=== PATIENT | male | born 1940 | race Caucasian/White ===

== ENCOUNTER 2017-12-14 13:10 | Emergency (ER) | payer OTHER ==
[2017-12-14 17:01] LABS: ADD MAN DIFF? NO
[2017-12-14 17:03] LABS: WHITE BLOOD COUNT 8.4 10^3/ul (4.8-10.8)
[2017-12-14 17:03] LABS: BASOPHIL # 0.1 10^3/ul (0.0-0.1); BASOPHILS % 0.8 % (0.0-2.0); EOSINOPHILS # 0.1 10^3/ul (0.0-0.5); EOSINOPHILS % 1.2 % (0.0-7.0); HEMATOCRIT 39.5 % (42.0-52.0); LYMPHOCYTES # 2.1 10^3/ul (0.8-2.9); LYMPHOCYTES % 25.1 % (15.0-51.0); MEAN CORPUSCULAR HEMOGLOBIN 30.5 pg (29.0-33.0); MEAN CORPUSCULAR HGB CONC 32.9 g/dl (32.0-37.0); MEAN CORPUSCULAR VOLUME 92.7 fl (82.0-101.0); MEAN PLATELET VOLUME 9.4 fl (7.4-10.4); MONOCYTE # 0.7 10^3/ul (0.3-0.9); MONOCYTES % 8.3 % (0.0-11.0); NEUTROPHIL # 5.4 10^3/ul (1.6-7.5); NEUTROPHILS % 64.4 % (39.0-77.0); PLATELET COUNT 195 10^3/UL (140-415); RED BLOOD COUNT 4.26 10^6/ul (4.70-6.10); RED CELL DISTRIBUTION WIDTH 11.9 % (11.5-14.5)
[2017-12-14 17:24] LABS: ALANINE AMINOTRANSFERASE 22 IU/L (13-69); ALBUMIN 4.6 g/dl (3.3-4.9); ALBUMIN/GLOBULIN RATIO 1.21; ALKALINE PHOSPHATASE 109 IU/L (42-121); ANION GAP 19 (8-16); ASPARTATE AMINO TRANSFERASE 17 IU/L (15-46); BILIRUBIN,INDIRECT 0.9 mg/dl (0-1.1); BILIRUBIN,TOTAL 0.9 mg/dl (0.2-1.3); BLOOD UREA NITROGEN 19 mg/dl (7-20); CALCIUM 9.9 mg/dl (8.4-10.2); CARBON DIOXIDE 26 mmol/L (21-31); CHLORIDE 104 mmol/L (97-110); GLUCOSE 115 mg/dl (70-220); LIPASE 108 U/L (23-300); POTASSIUM 3.9 mmol/L (3.5-5.1); SODIUM 145 mmol/L (135-144); TOTAL PROTEIN 8.4 g/dl (6.1-8.1)
[2017-12-14 17:25] LABS: INR 0.92; PROTIME 12.4 Sec (11.9-14.9)
[2017-12-14] MEDS: ALPRAZOLAM 0.25 MG TAB PO (17:25)
[2017-12-14] MEDS: ONDANSETRON 4 MG INJ IV (17:25)
[2017-12-14 17:26] LABS: PARTIAL THROMBOPLASTIN TIME 37.2 Sec (25.0-35.0)
[2017-12-14] MEDS: SOD CHLORIDE 0.9% 500 ML IV (17:29)
[2017-12-14 17:36] LABS: TROPONIN-I < 0.012 ng/ml (0.00-0.12)
[2017-12-14 19:06] LABS: ADD UMIC NO; UR ASCORBIC ACID NEGATIVE (NEGATIVE); UR BILIRUBIN (Dip) NEGATIVE (NEGATIVE); UR BLOOD (Dip) NEGATIVE (NEGATIVE); UR CLARITY CLEAR (CLEAR); UR COLOR STRAW (YELLOW); UR GLUCOSE (Dip) NEGATIVE (NEGATIVE); UR KETONES (Dip) TRACE mg/dL (NEGATIVE); UR LEUKOCYTE ESTERASE (Dip) NEGATIVE Leu/ul (NEGATIVE); UR NITRITE (Dip) NEGATIVE (NEGATIVE); UR SPECIFIC GRAVITY (Dip) 1.005 (1.003-1.030); UR TOTAL PROTEIN (Dip) NEGATIVE (NEGATIVE); UR UROBILINOGEN (Dip) NEGATIVE (NEGATIVE)
== END 2017-12-14 19:14 | disposition home or self-care (01) ==
LOC: E/R 13:10
DX: R42 Dizziness and giddiness (principal); I10 Essential (primary) hypertension; R11.0 Nausea; Z87.891 Personal history of nicotine dependence
CPT/HCPCS: 36415; 70450; 71045; 80053; 81003; 83690; 84484; 85025; 85610; 85730; 93005; 96374; 99285-25